=== PATIENT | female | born 1960 | race Caucasian/White ===

== ENCOUNTER 2016-06-22 21:02 | Emergency (ER) | payer OTHER | END 2016-06-22 23:20 | disposition home or self-care (01) | LOC: ER 21:02 | DX: M54.5 Low back pain (principal); G89.29 Other chronic pain; I10 Essential (primary) hypertension; F17.210 Nicotine dependence, cigarettes, uncomplicated; Z90.89 Acquired absence of other organs; Z79.899 Other long term (current) drug therapy; Z88.5 Allergy status to narcotic agent ==

== ENCOUNTER 2016-07-22 03:35 | Emergency (ER) | payer OTHER | END 2016-07-22 06:21 | disposition home or self-care (01) | LOC: ER 03:35 | DX: M54.5 Low back pain (principal); I10 Essential (primary) hypertension; F17.210 Nicotine dependence, cigarettes, uncomplicated; Z79.82 Long term (current) use of aspirin; Z79.899 Other long term (current) drug therapy; Z88.5 Allergy status to narcotic agent; X50.9XXA Other and unspecified overexertion or strenuous movements or postures, initial encounter; Y92.009 Unspecified place in unspecified non-institutional (private) residence as the place of occurrence of the external cause ==